=== PATIENT | male | born 1995 | race Caucasian/White ===

== ENCOUNTER 2016-05-15 04:00 | Inpatient (IN) | payer OTHER ==
[2016-05-15] VITALS (12 sets, daily range): BP systolic 101–112; BP diastolic 58–65; PULSE 50–85; RESP 16–19; TEMP 98–98.7; O2SAT 98–100
[~2016-05-15] VITALS: Ht 170.2 cm; Wt 55.9 kg
[2016-05-15] MEDS ORDERED: MORPHINE SULFATE 4 MG/ML INJ IV PUSH ONE (04:15)
--- NOTE | 2016-05-15 05:04 | RADRPT ---
EXAM DATE/TIME: 05/15/2016 04:50 [facility] COMPARISON: No previous studies available for comparison. INDICATIONS : Sudden onset of headache. RADIATION DOSE: 56.35 CTDIvol (mGy) MEDICAL HISTORY : None SURGICAL HISTORY : None. ENCOUNTER: Initial ACUITY: 1 day PAIN SCALE: 10/10 LOCATION: cranial TECHNIQUE: Multiple contiguous axial images were obtained of the head. Using automated exposure control and adj ustment of the mA and/or kV according to patient size, radiation dose was kept as low as reasonably a chievable to obtain optimal diagnostic quality images. FINDINGS: There is increased density in the anterior hemispheric fissure as well as the course of the left midd le cerebral artery which may reflect subarachnoid hemorrhage. In addition there is increased density to the left of midline in the high cerebral convexity. CT angiography to be performed. No intraparenc hymal hematoma is identified. No excessive fluid collections are present. Posterior fossa structures are unremarkable. CONCLUSION: 1. Subarachnoid hemorrhage as above. CT angiography is to be performed. Eugenio Vo MD on May 15, 2016 at 4:57 Board Certified Radiologist. This report was verified electronically.
[2016-05-15] MEDS ORDERED: SODIUM CHLORIDE 0.9% FLUSH 5 ML FLUSH IV FLUSH PRN (05:15)
[2016-05-15] MEDS ORDERED: MISCELLANEOUS NURSING INFORMATION XX SCH (05:15)
[2016-05-15] MEDS ORDERED: ONDANSETRON HCL 4 MG/2 ML VIAL IV PRN (05:15)
[2016-05-15] MEDS ORDERED: MORPHINE SULFATE 4 MG/ML INJ IV PRN (05:15)
[2016-05-15] MEDS ORDERED: CHLORHEXIDINE GLUCONATE 2 % 1 PACK (2 CLOTHS) TOP PRN (05:15)
[2016-05-15] MEDS ORDERED: IOHEXOL 350 MG/ML 10 ML VIAL (for RAD DIAG) IV ONE (05:18)
--- NOTE | 2016-05-15 05:23 | HHI.HP ---
[facility] Service Critical Care Medicine Primary Care Physician No Primary Care Physician Admission Diagnosis Subarrachnoid hemorrhage Diagnosis: Chief Complaint: Severe Headache. Travel History International Travel<30 Days: No Contact w/Intl Traveler <30 Da: No Traveled to Known Affected Are: No History of Present Illness 20 y/o man developed a severe headache several hours prior to presenting to [facility] ED. Not hypertensive. No focal neurological deficit. CT head demonstrates probable subarachnoid hemorrhage. [place] CT [place] [facility] [place] possible [place]H in fissure between frontal lobes. No intraparenchymal lesions or blood. He remains nonfocal, headache persists without much improvement after morphine 2 mg. Patient going strait to CTA brain now. Review of Systems Neurologic: COMPLAINS OF: Headache Past Family Social History Allergies: Coded Allergies: No Known Allergies (Unverified , 05/15/16) Past Medical History No meds or illnesses. Healthy, active. Physical Exam Vital Signs Vital Signs Date Time Temp Pulse Resp B/P Pulse Ox O2 Delivery O2 Flow Rate FiO2 05/15/16 04:06 98.7 70 16 112/65 100 Room Air Physical Exam P 70, BP 112/65, R 16, T 99.9, Sats 97% RA. Gen: Ill-appearing young man. Head: Atraumatic, normal. Neck: Supple, airway widely patent. Lungs: Clear, no wheezes or crackles. Comfortable respiratory pattern. Heart: NL S1S2, RRR. No JVD. Abdomen: Soft, nontender, nondistended, BS active. Extremities: Warm, well perfused. No edema. Neuro: O X 3, cooperative. M/S grossly intact. RADHA. EOMs intact. Smile, grimace symmetrical. Assessment and Plan Problem List: (1) Subarachnoid hemorrhage ICD Code: I60.9 Status: Acute (2) Headache ICD Code: R51 Status: Acute Assessment and Plan Plan: 1. Maintain SBP < 140 prior to control of aneurysm. 2. HOB up 30 degrees. 3. NPO. 4. Nimodipine with sips q4h. 5. Avoid hypotension. 6. NS iv 100 ml/hr. 7. No chemical DVT Px. 8. SCDs. 9. Protonix daily. 10. Neurosurgical evaluation. Overall impression: Sudden severe headache with anterior 1 segment, 2 mm aneurysm left side. Patient is critically with spontaneous subarachnoid hemorrhage and high risk of sudden neurological deterioration. Critical Care 40 mins aside from procedures. Problem Qualifiers (1) Headache: Qualified Code: G44.53 - Primary thunderclap headache Rigo Diallo MD May 15, 2016 05:23
--- NOTE | 2016-05-15 05:29 | RADRPT ---
EXAM DATE/TIME: 05/15/2016 04:58 [facility] COMPARISON: No previous studies available for comparison. INDICATIONS : Sudden onset cephalgia. IV CONTRAST: 72 cc Omnipaque 350 (iohexol) IV RADIATION DOSE: 17.82 CTDIvol (mGy) MEDICAL HISTORY : None SURGICAL HISTORY : None. ENCOUNTER: Initial ACUITY: 1 day PAIN SCALE: 9/10 LOCATION: cranial TECHNIQUE: Volumetric scanning was performed using a multi-row detector CT scanner. The data was post processed with a variety of visualization algorithms including full volume maximum intensity projection, multi -planar sliding thin slab reformation, curved planar reformation, and surface rendering techniques. Using automated exposure control and adjustment of the mA and/or kV according to patient size, radiat ion dose was kept as low as reasonably achievable to obtain optimal diagnostic quality images. FINDINGS: There are findings consisted with an aneurysm measuring 2 mm arising from the A1 segment on the left side. No vasospasm is identified. There is a aplastic A1 segment on the right. Posterior fossa vessel s are intact. Vertebral arteries are codominant. CONCLUSION: 1. 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 No spasm is identified. Eugenio Vo MD on May 15, 2016 at 5:21 Board Certified Radiologist. This report was verified electronically.
[2016-05-15 06:29] LABS: AMPHETAMINE, URINE NEG (NEG); COCAINE, URINE NEG (NEG)
[2016-05-15 06:35] LABS: BARBITURATES, URINE NEG (NEG)
[2016-05-15] MEDS: SODIUM CHLOR 0.9% 1000 ML INJ 1,000 ML IV SCH ×2 (06:45→16:00)
[2016-05-15] MEDS: PANTOPRAZOLE SODIUM 40 MG VIAL IV SCH (08:30)
[2016-05-15] MEDS: niMODipine 30 MG CAP PO SCH ×4 (08:30→20:36)
[2016-05-15] MEDS: SODIUM CHLORIDE 0.9% FLUSH 5 ML FLUSH IV FLUSH SCH ×2 (08:31→20:36)
[2016-05-15] MEDS: PRAVASTATIN SOD 40 MG TAB PO SCH (09:00)
[2016-05-15] MEDS ORDERED: fentaNYL CITRATE 250 MCG/5 ML AMP ONE (11:33)
[2016-05-15] MEDS ORDERED: MIDAZOLAM HCL 5 MG/5 ML VIAL ONE (11:33)
--- NOTE | 2016-05-15 12:01 | PD.CONS ---
[facility] Service Neurosurg Consult Requested By [facility] Primary Care Physician No Primary Care Physician History of Present Illness This is a 20 y/o male who developed a severe headache several hours prior to presenting to [facility] ED. No focal neurological deficit. CT head demonstrates probable subarachnoid hemorrhage. No seizure activity noted. No tongue bitting. No incontinence of stool or urine. Repeat CT head here at [facility] [place] shows possible SAH mostly in the left Sylvian fissure. Denies headaches. Denies nauseas or vomiting. Denies photophobia. No intraparenchymal lesions or blood. He remains nonfocal, headache persists without much improvement after morphine 2 mg. Neurosurgical consultation was requested. Review of Systems Constitutional: DENIES: Diaphoretic episodes, Fatigue, Fever, Weight gain, Weight loss, Chills, Dizziness, Change in appetite, Night Sweats Endocrine: DENIES: Heat/cold intolerance, Polydipsia, Polyuria, Polyphagia Eyes: DENIES: Blurred vision, Diplopia, Eye inflammation, Eye pain, Vision loss , Photosensitivity, Double Vision Ears, nose, mouth, throat: DENIES: Tinnitus, Hearing loss, Vertigo, Nasal discharge, Oral lesions, Throat pain, Hoarseness, Ear Pain, Running Nose, Epistaxis, Sinus Pain, Toothache, Odynophagia Respiratory: DENIES: Apneas, Cough, Snoring, Wheezing, Hemoptysis, Sputum production, Shortness of breath Cardiovascular: DENIES: Chest pain, Palpitations, Syncope, Dyspnea on Exertion , PND, Lower Extremity Edema, Orthopnea, Claudication Gastrointestinal: DENIES: Abdominal pain, Black stools, Bloody stools, Constipation, Diarrhea, Nausea, Vomiting, Difficulty Swallowing, Anorexia Genitourinary: DENIES: Sexual dysfunction, Urinary frequency, Urinary incontinence, Urgency, Hematuria, Dysuria, Nocturia, Penile Discharge, Testicular Pain, Testicular Swelling Musculoskeletal: DENIES: Joint pain, Muscle aches, Stiffness, Joint Swelling, Back pain, Neck pain Integumentary: DENIES: Abnormal pigmentation, Nail changes, Pruritus, Rash Hematologic/lymphatic: DENIES: Bruising, Lymphadenopathy Immunologic/allergic: DENIES: Eczema, Urticaria Neurologic: COMPLAINS OF: Headache (Now resolved), DENIES: Abnormal gait, Localized weakness, Paresthesias, Seizures, Speech Problems, Tremor, Poor Balance Psychiatric: DENIES: Anxiety, Confusion, Mood changes, Depression, Hallucinations, Agitation, Suicidal Ideation, Homicidal Ideation, Delusions Past Family Social History Allergies: Coded Allergies: No Known Allergies (Unverified , 05/15/16) Past Medical History No meds or illnesses. Past Surgical History none Reported Medications none Active Ordered Medications Current Medications Morphine Sulfate (Morphine Inj) 2 mg ONCE ONCE IV PUSH Last administered on 04:46; Start 05/15/16 at 04:15; Stop 05/15/16 at 04:16; Status DC Nimodipine 60 mg 60 mg Q4HR PO Last administered on 05/21/16 07:40; Start at 08:00 Sodium Chloride (NS 1000 ml Inj) 1,000 ml @ 100 mls/hr Q10H IV Last administered on 05/21/16 07:42; Start 05/15/16 at 05:11 IV Flush (NS Flush) 2 ml UNSCH PRN IV FLUSH FLUSH AFTER USING IV ACCESS; Start 05/15/16 at 05:15 IV Flush (NS Flush) 2 ml BID IV FLUSH Last administered on 05/21/16 07:41; Start 05/15/16 at 09:00 Acetaminophen (Tylenol) 650 mg Q6H PRN PO PAIN 1-10 AND/OR FEVER >101F Last administered on 05/20/16 05:58; Start 05/15/16 at 05:15 Morphine Sulfate (Morphine Inj) 2 mg Q2H PRN IV PAIN SCALE 6 TO 10; Start 05/15 at 05:15 Pantoprazole Sodium (Protonix Inj) 40 mg DAILY IV Last administered on 07:40; Start 05/15/16 at 09:00 Ondansetron HCl (Zofran Inj) 4 mg Q6H PRN IV NAUSEA OR VOMITING Last administered on 05/20/16 19:02; Start 05/15/16 at 05:15 Miscellaneous Information 1 [id number] XX Last administered on 05/15/16 05:15; Start 05/15/16 at 05:15 Chlorhexidine Gluconate (Chlorhexidine 2% Cloth) Taper DAILY@04 TOP Last administered on 05/17/16 03:43; Start 05/16/16 at 04:00; Stop 05/12/17 at 03:59 Chlorhexidine Gluconate (Chlorhexidine 2% Cloth) 3 pack UNSCH PRN TOP HYGIENIC CARE; Start 05/15/16 at 05:15 Iohexol (Omnipaque 350 Inj) 72 ml STK-MED ONCE IV Last administered on 05:18; Start 05/15/16 at 05:18; Stop 05/15/16 at 05:19; Status DC Influenza Virus Vaccine (Flu (Quadrivalent) Vaccine Inj) 0.5 ml ONCE ONCE IM Last administered on 05/16/16 08:23; Start 05/16/16 at 09:00; Stop 05/16/16 at 09:04; Status DC Pravastatin Sodium (Pravachol) 40 mg DAILY PO Last administered on 05/21/16 07 :41; Start 05/15/16 at 09:00 Midazolam HCl (Versed Inj) 5 mg STK-MED ONCE .ROUTE Last administered on 11:33; Start 05/15/16 at 11:33; Stop 05/15/16 at 11:34; Status DC Fentanyl Citrate (fentaNYL INJ) 250 mcg STK-MED ONCE .ROUTE Last administered on 05/15/16 11:33; Start 05/15/16 at 11:33; Stop 05/15/16 at 11:34; Status DC Fentanyl Citrate (fentaNYL INJ) 100 mcg STK-MED ONCE .ROUTE ; Start 05/15/16 at 12:23; Stop 05/15/16 at 12:24; Status DC Iodixanol (Visipaque 320 Inj) 70 ml STK-MED ONCE I-ARTERIAL Last administered on 05/15/16 12:53; Start 05/15/16 at 12:53; Stop 05/15/16 at 12:54; Status DC Nicotine (Habitrol 21 Mg Patch.24 Hr) 1 patch DAILY TD Last administered on 07:41; Start 05/16/16 at 12:00 Miscellaneous Information 1 DAILY TD Last administered on 05/21/16 07:41; Start 05/17/16 at 09:00 Epinephrine HCl (EPINEPHrine (1:10,000) INJ) 1 mg STK-MED ONCE .ROUTE ; Start at 03:51; Stop 05/20/16 at 03:52; Status DC Atropine Sulfate (Atropine Inj) 1 mg STK-MED ONCE .ROUTE ; Start 05/20/16 at 03: 52; Stop 05/20/16 at 03:53; Status DC Lidocaine HCl (Xylocaine 2% Inj) 100 mg STK-MED ONCE .ROUTE ; Start 05/20/16 at 03:52; Stop 05/20/16 at 03:53; Status DC Midazolam HCl (Versed Inj) 5 mg STK-MED ONCE .ROUTE Last administered on 14:29; Start 05/20/16 at 14:29; Stop 05/20/16 at 14:30; Status DC Fentanyl Citrate (fentaNYL INJ) 250 mcg STK-MED ONCE .ROUTE Last administered on 05/20/16 14:29; Start 05/20/16 at 14:29; Stop 05/20/16 at 14:30; Status DC Midazolam HCl (Versed Inj) 5 mg STK-MED ONCE .ROUTE Last administered on 14:59; Start 05/20/16 at 14:59; Stop 05/20/16 at 15:00; Status DC Fentanyl Citrate (fentaNYL INJ) 250 mcg STK-MED ONCE .ROUTE Last administered on 05/20/16 14:59; Start 05/20/16 at 14:59; Stop 05/20/16 at 15:00; Status DC Iodixanol (Visipaque 320 Inj) 100 ml STK-MED ONCE I-ARTERIAL Last administered on 05/20/16 15:22; Start 05/20/16 at 15:22; Stop 05/20/16 at 15:23; Status DC Family History non contributory Social History denies tobbacco, ETOH Physical Exam Vital Signs Vital Signs Date Time Temp Pulse Resp B/P Pulse Ox O2 Delivery O2 Flow Rate FiO2 05/15/16 10:00 85 05/15/16 08:00 50 05/15/16 08:00 98.3 50 18 110/62 99 05/15/16 07:30 Room Air 05/15/16 06:46 16 05/15/16 06:00 60 05/15/16 05:18 100 05/15/16 04:06 98.7 70 16 112/65 100 Room Air Laboratory Laboratory Tests Test 05/15/16 05/15/16 05:56 06:25 Urine Opiates Screen NEG Urine Barbiturates Screen NEG Urine Amphetamines Screen NEG Urine Benzodiazepines Screen NEG Urine Cocaine Screen NEG Urine Cannabinoids Screen POS Nasal Screen MRSA (PCR) NEGATIVE Assessment and Plan Assessment and Plan (1) Subarachnoid hemorrhage Attending Statement Neuro. I have reviewed his clinical and radiological findings. Start neuro checks in a serial fashion. I reviewed the CTA with the neuroradiologist. There is a 2mm aneurysm which may not fully explain the SAH in left sylvian fissure. Will obtain a conventional angiography. A placement of a ICP monitoring is not indicated at this time Recommend to repeat the CT of the brain in 24 hours. Respiratory. Mechanical ventiation. Aggressive pulmonary toilette, nasotracheal suction, and breathing treatments with nebulizers. PT and OT evaluation Nutrition. NPO Renal. monitor closely urine output, BUN and creatinine Endocrine. Monitor serial Acu checks and SSI as needed in detail ID monitor for signs of infection Protonix for stress ulcer prophylaxis Juan hose and SCD's for DVT prophylaxis The alternatives of treatment were discussed with the patient, including surgery. Further recommendations depending with full workup. Addendum. I reviewed the angiography with the neuroradiologist, Dr Alvarado. He does not think that the location of the 2mm can explain his hemorrhage, and recommends against treatment at this time. WIll repeat the cerebral angiography in 7 days Mario Gallagher MD May 15, 2016 12:01
[2016-05-15] MEDS ORDERED: IODIXANOL 320 MG/ML 50 ML VIAL (for RAD SPEC) I-ARTERIAL ONE (12:53)
--- NOTE | 2016-05-15 14:35 | PD.RAD ---
Post Procedure Progress Note Pre Procedure Diagnosis: (1) Subarachnoid hemorrhage (2) Headache Post Procedure Diagnosis: (1) Subarachnoid hemorrhage (2) Headache Procedure Date: May 15, 2016 Supervising Radiologist: Gustavo Johnson Proceduralist/Assist: Alina Ma RT(R), Alina Mcghee RT(R)(), Haja Alberts RT(R) Anesthesia: Local, Conscious Sedation Plan of Activity Patient to Unit: ROPU Patient Condition: Good See PACS Report for procedural detail/treatment Vascular-Arterial Procedure Procedure 1 Procedure Site: Cerebral Procedure(s): Angiogram Access Access Site(s): Right Femoral Artery Closure Site(s): Right hemostasis patch Findings: 2 mm blister aneurysm LEON Gustavo Johnson MD May 15, 2016 14:35
--- NOTE | 2016-05-15 15:42 | RADRPT ---
EXAM DATE/TIME: 05/15/2016 00:00 [facility] COMPARISON: No previous studies available for comparison. INDICATIONS : Patient with a history of aneurysm, subarachnoid hemorrhage. MEDICAL HISTORY : None SURGICAL HISTORY : None ENCOUNTER: Initial ACUITY: 1 day PAIN SCORE: 1/10 LOCATION: Headache FLUORO TIME: 7.1 minutes ACCESS SITE: Right Femoral artery SEDATION TIME: 60 minutes CONTRAST: 70 cc Visipaque (iodixanol) MEDICATION(S): 1.) 5 mg midazolam (Versed) IV 2.) 300 mcg fentanyl (Sublimaze) IV DEVICE(S): 1.) Right common femoral artery Syvek patch PROCEDURE : 1. Ultrasound-guided puncture of the access site. 2. Conscious sedation with continuous EKG and Oximetry monitoring. 3. Angiography of the left cerebral circulation 4. Angiography of the right cervical circulation 5. Angiography of the right vertebrobasilar circulation 6. Angiography of the left vertebrobasilar circulation The risks, benefits and alternatives to the procedure were explained and verbal and written consent w as obtained. The site was prepped in sterile fashion. Full sterile technique was used, including ca p, mask, sterile gloves and gown and a large sterile sheet. Hand hygiene and 2% chlorhexidine and/or betadine/alcohol prep was utilized per protocol for cutaneous antisepsis. The skin and subcutaneous tissues were infiltrated with local anesthetic solution. With ultrasound and fluoroscopic guidance the selected artery was punctured and a vascular sheath was placed Four-vessel cerebral/vertebral basilar arteriogram was performed. Left cerebral arteriogram: Under fluoroscopic observation a diagnostic catheter was advanced through the left common carotid art dennis into the proximal left internal carotid artery. 2-D as well as 3-D rotational angiography was per formed of the cerebral circulation. The left anterior cerebral artery supplies both right and left anterior cerebral arteries. In the cru x of the bifurcation there is a 1.8 x 1.6 mm blister aneurysm which appears smoothly marginated. The anterior cerebral circulation is otherwise unremarkable. The carotid siphon and left middle cerebral artery circulation is unremarkable. There are no arterial , capillary or venous abnormalities. There are no additional aneurysms or evidence of arterial venous malformations. Right cerebral arteriogram: Under fluoroscopic observation the diagnostic catheter was advanced from the aortic arch through the right common carotid artery into the proximal right internal carotid artery. 2-D as well as 3-D rotat ional angiography was performed of the cerebral circulation. The A1 segment of the anterior cerebral artery is aplastic. The internal carotid artery siphon and right middle cerebral artery and its branc hes are unremarkable. There is no evidence of focal aneurysm, stenosis, arteriovenous malformations o r mass effect. Left vertebrobasilar arteriogram: Under fluoroscopic observation the diagnostic catheter was advanced through the left subclavian arter y into the proximal q artery. 2-D angiography of the posterior circulation was performed. The vertebr obasilar circulation including its branches are unremarkable. There is no evidence of focal aneurysm, luminal irregularity, AVM or vascular displacement. There is no reflux into the right vertebral sepideh ry. Right vertebrobasilar arteriogram: Under fluoroscopic observation the right subclavian artery was selectively catheterized and a diagnos tic catheter advanced into the right vertebral artery over guidewire. 2-D angiography was performed. The vertebrobasilar circulation is unremarkable. There is no evidence of focal aneurysm especially in the intracranial segment of the vertebral artery. The arterial, capillary or venous phases appear no rmal. There is no evidence of AVM or vascular displacement. The puncture site was closed with manual pressure and hemostasis was obtained. The patient tolerated the procedure well and there were no complications. Conscious sedation was performed with the prescribed dosages and duration as above. EKG and oximetry remained stable throughout the procedure. 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 Otherwise normal intracranial circulation. No other evidence of aneurysm, AVM, luminal irregularity o r vascular displacement. Gustavo Johnson MD on May 15, 2016 at 15:23 Board Certified Radiologist. This report was verified electronically.
[2016-05-16] VITALS (13 sets, daily range): BP systolic 81–112; BP diastolic 44–67; PULSE 50–80; RESP 16–24; TEMP 97.5–98.9; O2SAT 98–100
[2016-05-16] MEDS: niMODipine 30 MG CAP PO SCH ×7 (00:04→23:53)
[2016-05-16] MEDS: SODIUM CHLOR 0.9% 1000 ML INJ 1,000 ML IV SCH ×3 (01:11→21:11)
[2016-05-16] MEDS: ACETAMINOPHEN 325 MG TAB PO PRN ×3 (03:30→16:24)
[2016-05-16] MEDS: CHLORHEXIDINE GLUCONATE 2 % 1 PACK (2 CLOTHS) TOP SCH (03:40)
[2016-05-16 05:15] LABS: AUTOMATED NEUTROPHIL # 9.1 TH/MM3 (1.8-7.7); BASOPHIL % 0.3 % (0.0-2.0); EOSINOPHIL % 0.2 % (0.0-4.0); HEMATOCRIT 45.6 % (39.0-51.0); HEMO FLAGS DIFF FINAL; LYMPH % 31.4 % (9.0-44.0); LYMPHOCYTE # 4.6 TH/MM3 (1.0-4.8); MEAN CELL VOLUME 87.9 FL (80.0-100.0); MEAN CORPUSCULAR HEMOGLOBIN 29.4 PG (27.0-34.0); MEAN CORPUSCULAR HGB CONC 33.5 % (32.0-36.0); MONO % 6.1 % (0.0-8.0); PLATELET COUNT 277 TH/MM3 (150-450); RED BLOOD COUNT 5.19 MIL/MM3 (4.50-5.90); RED CELL DISTRIBUTION WIDTH 14.4 % (11.6-17.2); WHITE BLOOD COUNT 14.6 TH/MM3 (4.0-11.0)
[2016-05-16 05:18] LABS: ALKALINE PHOSPHATASE 60 U/L (45-117); ALT (GPT) 23 U/L (12-78); ANION GAP 9 MEQ/L (5-15); AST (GOT) 14 U/L (15-37); BICARBONATE 27.4 MEQ/L (21.0-32.0); BLOOD UREA NITROGEN 12 MG/DL (7-18); CHLORIDE 105 MEQ/L (98-107); GLOMERULAR FILTRATION RATE 116 ML/MIN (>89); MAGNESIUM 1.8 MG/DL (1.5-2.5); POTASSIUM 3.8 MEQ/L (3.5-5.1); SODIUM (NA) 141 MEQ/L (136-145); TOTAL BILIRUBIN ADULT 0.6 MG/DL (0.2-1.0)
--- NOTE | 2016-05-16 07:51 | HHI.NSPN ---
(Carlos Diez) History Chief Complaint: SAH and headache. (Carlos Diez) Interval History 20 y/o man developed a severe headache several hours prior to presenting to [facility] ED. Not hypertensive. No focal neurological deficit. CT head demonstrates probable subarachnoid hemorrhage. Repeat CT head here at [facility] [place] shows possible SAH in fissure between frontal lobes. No intraparenchymal lesions or blood. He remains nonfocal, headache persists without much improvement after morphine 2 mg. Patient going strait to CTA brain now. 05/16/16: Pt awakens easily. Complains of frontal headache. No nausea, vomiting, muscle weakness, or visual changes. (Carlos Diez) Review of Systems General: Negative for: fever, chills, insomnia Respiratory: Negative for: shortness of breath, cough, sputum Cardiovascular: Negative for: chest pain Gastrointestinal: Negative for: nausea, vomitting, diarrhea, constipation ( Carlos Diez) Exam Results Vital Signs Date Time Temp Pulse Resp B/P Pulse Ox O2 Delivery O2 Flow Rate FiO2 05/16/16 07:00 Room Air 05/16/16 06:00 50 05/16/16 04:00 98.2 18 102/54 98 05/15/16 21:30 21 Intake and Output 05/15/16 05/15/16 05/16/16 08:00 16:00 00:00 Intake Total 0 ml 800 ml 864 ml Output Total 1000 ml 300 ml Balance 0 ml -200 ml 564 ml (Carlos Diez) Physical Examination Resp: CTA bilaterally Heart: NSR no murmurs Abd: Soft positive bs Skin: No cyanosis or erythema Muscle: Moves all 4 extremities well 5/5 strength Neuro: Pt awakens to voice. Pupils 3mm bilaterally reactive bilaterally. Follows commands well. Speech clear and appropriate. (Carlos Diez) Lab, Micro, Other Results Last Impressions Head CTA 05/15/16 0000 Signed Impressions: Service Date/Time: Sunday, May 15, 2016 04:58 - CONCLUSION: 1. 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 No spasm is identified. Eugenio Vo MD Head CT 05/15/16 0000 Signed Impressions: Service Date/Time: Sunday, May 15, 2016 04:50 - CONCLUSION: 1. Subarachnoid hemorrhage as above. CT angiography is to be performed. 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 Otherwise normal intracranial circulation. No other evidence of aneurysm, AVM, luminal irregularity or vascular displacement. Gustavo Johnson MD Laboratory Tests Test 05/16/16 05/16/16 03:58 04:05 Sodium Level 141 MEQ/L Potassium Level 3.8 MEQ/L Chloride Level 105 MEQ/L Carbon Dioxide Level 27.4 MEQ/L Anion Gap 9 MEQ/L Blood Urea Nitrogen 12 MG/DL Creatinine 0.83 MG/DL Estimat Glomerular Filtration 116 ML/MIN Rate Random Glucose 98 MG/DL Calcium Level 8.2 MG/DL Phosphorus Level 2.7 MG/DL Magnesium Level 1.8 MG/DL Total Bilirubin 0.6 MG/DL Aspartate Amino Transf 14 U/L (AST/SGOT) Alanine Aminotransferase 23 U/L (ALT/SGPT) Alkaline Phosphatase 60 U/L Total Protein 6.5 GM/DL Albumin 3.4 GM/DL White Blood Count 14.6 TH/MM3 Red Blood Count 5.19 MIL/MM3 Hemoglobin 15.3 GM/DL Hematocrit 45.6 % Mean Corpuscular Volume 87.9 FL Mean Corpuscular Hemoglobin 29.4 PG Mean Corpuscular Hemoglobin 33.5 % Concent Red Cell Distribution Width 14.4 % Platelet Count 277 TH/MM3 Mean Platelet Volume 8.3 FL Neutrophils (%) (Auto) 62.0 % Lymphocytes (%) (Auto) 31.4 % Monocytes (%) (Auto) 6.1 % Eosinophils (%) (Auto) 0.2 % Basophils (%) (Auto) 0.3 % Neutrophils # (Auto) 9.1 TH/MM3 Lymphocytes # (Auto) 4.6 TH/MM3 Monocytes # (Auto) 0.9 TH/MM3 Eosinophils # (Auto) 0.0 TH/MM3 Basophils # (Auto) 0.0 TH/MM3 CBC Comment DIFF FINAL Differential Comment 05/15/16 05/15/16 05/16/16 15:00 23:00 07:00 Intake Total 800 ml 864 ml 1053 ml Output Total 1000 ml 300 ml 200 ml Balance -200 ml 564 ml 853 ml Intake Oral 240 ml 240 ml IV Total 800 ml 624 ml 813 ml Output Urine Total 1000 ml 300 ml 200 ml (Carlos Diez) Medical Decision Making Impression and Plan A: 20 y/o M with headache found to have SAH and a 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 P: Continue with neuro checks. Continue with current care. (Carlos Diez) Attending Statement The exam, history, and the medical decision-making described in the above note were completed with the assistance of the mid-level provider. I reviewed and agree with the findings presented. I attest that I had a [id number] encounter with the patient on the same day, and personally performed and documented my assessment and findings in the medical record. 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 Patient is requesting that he be discharged home and I have informed him that there is a risk for rehemorrhage as well as developing vasospasm and used to be monitored for this and Dr. Gallagher to address more definitive treatment options for this aneurysm. He wants to go outside and smoke cigarettes and was informed that this is a smoke-free hospital but I will start him on nicotine patch. I've also discussed with the family members at bedside and hopefully they can convince him to stay in the hospital. (Yonathan Larson MD) Carlos Diez May 16, 2016 07:51 Yonathan Larson MD May 16, 2016 11:44
[2016-05-16] MEDS: PANTOPRAZOLE SODIUM 40 MG VIAL IV SCH (08:20)
[2016-05-16] MEDS: PRAVASTATIN SOD 40 MG TAB PO SCH (08:20)
[2016-05-16] MEDS: SODIUM CHLORIDE 0.9% FLUSH 5 ML FLUSH IV FLUSH SCH ×2 (08:20→21:00)
[2016-05-16] MEDS ORDERED: INFLUENZA VIRUS VACCINE (QUADRIVALENT) 0.5 ML SYR IM ONE (09:00)
[2016-05-16] MEDS: NICOTINE 21 MG/24 HR PATCH TD SCH (12:12)
--- NOTE | 2016-05-16 15:18 | HHI.CCPN ---
Subjective Remarks/Hospital Course 20 y/o man developed a severe headache several hours prior to presenting to [facility] ED. Not hypertensive. No focal neurological deficit. CT head demonstrates probable subarachnoid hemorrhage. Repeat CT head here at [facility] [place] shows possible SAH in fissure between frontal lobes. No intraparenchymal lesions or blood. He remains nonfocal, headache persists without much improvement after morphine 2 mg. Patient going strait to CTA brain now. Objective Vital Signs Date Time Temp Pulse Resp B/P Pulse Ox O2 Delivery O2 Flow Rate FiO2 05/16/16 12:00 60 05/16/16 10:07 100 21 05/16/16 08:00 97.5 22 97/52 05/16/16 07:00 Room Air Intake and Output 05/15/16 05/15/16 05/16/16 08:00 16:00 00:00 Intake Total 0 ml 800 ml 864 ml Output Total 1000 ml 300 ml Balance 0 ml -200 ml 564 ml Result Diagram: 05/16/16 0405 05/16/16 0358 Objective Remarks P 70, BP 112/65, R 16, T 99.9, Sats 97% RA. Gen: Ill-appearing young man. Head: Atraumatic, normal. Neck: Supple, airway widely patent. Lungs: Clear, no wheezes or crackles. Comfortable respiratory pattern. Heart: NL S1S2, RRR. No JVD. Abdomen: Soft, nontender, nondistended, BS active. Extremities: Warm, well perfused. No edema. Neuro: O X 3, cooperative. M/S grossly intact. RADHA. EOMs intact. Smile, grimace symmetrical. A/P Problem List: (1) Subarachnoid hemorrhage ICD Code: I60.9 Status: Acute (2) Headache ICD Code: R51 Status: Acute Assessment and Plan SAH due to Aneurysmal rupture Plan: -. Maintain SBP < 130 prior to control of aneurysm. - HOB up 30 degrees. -. Regular diet. - Nimodipine with sips q4h. - Pravachol - Vasospasm watch - Avoid hypotension. - NS iv 100 ml/hr. - No chemical DVT Px. - SCDs. - Protonix daily. - Repeat angiography in 7 D Overall impression: Sudden severe headache with anterior 1 segment, 2 mm blister aneurysm left side. Patient is critically ill with spontaneous subarachnoid hemorrhage and high risk of sudden neurological deterioration. Level 3 Problem Qualifiers (1) Headache: Qualified Code: G44.53 - Primary thunderclap headache Derian Foy MD May 16, 2016 15:18
[2016-05-17] VITALS (14 sets, daily range): BP systolic 100–108; BP diastolic 54–65; PULSE 50–70; RESP 13–20; TEMP 98.1–98.9; O2SAT 97–99
[2016-05-17] MEDS: CHLORHEXIDINE GLUCONATE 2 % 1 PACK (2 CLOTHS) TOP SCH (03:43)
[2016-05-17] MEDS: niMODipine 30 MG CAP PO SCH ×6 (03:43→23:51)
--- NOTE | 2016-05-17 06:49 | HHI.NSPN ---
(Carlos Diez) History Chief Complaint: SAH and headache. (Carlos Diez) Interval History 20 y/o man developed a severe headache several hours prior to presenting to [facility] ED. Not hypertensive. No focal neurological deficit. CT head demonstrates probable subarachnoid hemorrhage. [place] CT [place] [facility] [place] possible SAH in fissure between frontal lobes. No intraparenchymal lesions or blood. He remains nonfocal, headache persists without much improvement after morphine 2 mg. Patient going strait to CTA brain now. 05/16/16: Pt awakens easily. Complains of frontal headache. No nausea, vomiting, muscle weakness, or visual changes. 05/17/16: Pt awakens easily to voice. Intermittent headache resolves with medication. No nausea, vomiting, muscle weakness, or paresthesias. (Carlos Diez) Review of Systems General: Negative for: fever, chills, insomnia Respiratory: Negative for: shortness of breath, cough, sputum Cardiovascular: Negative for: chest pain Gastrointestinal: Negative for: nausea, vomitting, diarrhea, constipation ( Carlos Diez) Exam Results Vital Signs Date Time Temp Pulse Resp B/P Pulse Ox O2 Delivery O2 Flow Rate FiO2 05/17/16 06:00 50 05/17/16 04:00 98.6 13 100/54 99 05/17/16 01:42 21 05/16/16 20:00 Room Air Intake and Output 05/16/16 05/16/16 05/17/16 08:00 16:00 00:00 Intake Total 1053 ml 1320 ml 1785 ml Output Total 200 ml 800 ml 900 ml Balance 853 ml 520 ml 885 ml (Carlos Diez) Physical Examination Resp: CTA bilaterally Heart: NSR no murmurs Abd: Soft positive bs Skin: No cyanosis or erythema Muscle: Moves all 4 extremities well 5/5 strength Neuro: Pt awakens to voice. Pupils 3mm bilaterally reactive bilaterally. Follows commands well. Speech clear and appropriate. (Carlos Diez) Lab, Micro, Other Results Last Impressions Head CTA 05/15/16 0000 Signed Impressions: Service Date/Time: Sunday, May 15, 2016 04:58 - CONCLUSION: 1. 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 No spasm is identified. Eugenio Vo MD Head CT 05/15/16 0000 Signed Impressions: Service Date/Time: Sunday, May 15, 2016 04:50 - CONCLUSION: 1. Subarachnoid hemorrhage as above. CT angiography is to be performed. 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 Otherwise normal intracranial circulation. No other evidence of aneurysm, AVM, luminal irregularity or vascular displacement. 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 P: Continue with neuro checks. Continue with current care. Monitor closely for vasospasm. Continue with Nimodipine (Carlos Diez) Attending Statement The exam, history, and the medical decision-making described in the above note were completed with the assistance of the mid-level provider. I reviewed and agree with the findings presented. I attest that I had a [id number] encounter with the patient on the same day, and personally performed and documented my assessment and findings in the medical record. Stable neurologically and hemodynamically. Continue with close observation. (Yonathan Larson MD) Carlos Diez May 17, 2016 06:49 Yonathan Larson MD May 17, 2016 09:45
[2016-05-17 09:11] LABS: AUTOMATED NEUTROPHIL # 4.9 TH/MM3 (1.8-7.7); BASOPHIL % 0.6 % (0.0-2.0); EOSINOPHIL # 0.1 TH/MM3 (0-0.4); EOSINOPHIL % 0.8 % (0.0-4.0); HEMATOCRIT 48.4 % (39.0-51.0); HEMO FLAGS DIFF FINAL; LYMPH % 26.3 % (9.0-44.0); MEAN CELL VOLUME 88.2 FL (80.0-100.0); MEAN CORPUSCULAR HEMOGLOBIN 29.9 PG (27.0-34.0); MEAN CORPUSCULAR HGB CONC 33.9 % (32.0-36.0); MONO % 7.4 % (0.0-8.0); NEUT % 64.9 % (16.0-70.0); PLATELET COUNT 262 TH/MM3 (150-450); RED BLOOD COUNT 5.49 MIL/MM3 (4.50-5.90); WHITE BLOOD COUNT 7.6 TH/MM3 (4.0-11.0)
--- NOTE | 2016-05-17 09:18 | HHI.CCPN ---
Subjective Remarks/Hospital Course 20 y/o man developed a severe headache several hours prior to presenting to [facility] ED. Not hypertensive. No focal neurological deficit. CT head demonstrates probable subarachnoid hemorrhage. Repeat CT head here at [facility] [place] shows possible SAH in fissure between frontal lobes. No intraparenchymal lesions or blood. He remains nonfocal, headache persists without much improvement after morphine 2 mg. Patient going strait to CTA brain now. Objective Vital Signs Date Time Temp Pulse Resp B/P Pulse Ox O2 Delivery O2 Flow Rate FiO2 05/17/16 06:00 50 05/17/16 04:00 98.6 13 100/54 99 05/17/16 01:42 21 05/16/16 20:00 Room Air Intake and Output 05/16/16 05/16/16 05/17/16 08:00 16:00 00:00 Intake Total 1053 ml 1320 ml 1785 ml Output Total 200 ml 800 ml 900 ml Balance 853 ml 520 ml 885 ml Result Diagram: 05/17/16 0814 05/16/16 0358 Objective Remarks P 70, BP 112/65, R 16, T 99.9, Sats 97% RA. Gen: Ill-appearing young man. Head: Atraumatic, normal. Neck: Supple, airway widely patent. Lungs: Clear, no wheezes or crackles. Comfortable respiratory pattern. Heart: NL S1S2, RRR. No JVD. Abdomen: Soft, nontender, nondistended, BS active. Extremities: Warm, well perfused. No edema. Neuro: O X 3, cooperative. M/S grossly intact. RADHA. EOMs intact. Smile, grimace symmetrical. A/P Problem List: (1) Subarachnoid hemorrhage ICD Code: I60.9 Status: Acute (2) Headache ICD Code: R51 Status: Acute Assessment and Plan SAH - due to cerebral Aneurysma: - Maintain SBP < 130 - unsecured aneurysm. - HOB up 30 degrees. - Regular diet. - Nimodipine with sips q4h. - Pravachol - Vasospasm watch - Avoid hypotension. - NS iv 100 ml/hr. - Repeat angiography in 7 D DVT/GI prophylaxis - No chemical DVT Px. - SCDs. - Protonix daily. Overall impression: Sudden severe headache with anterior 1 segment, 2 mm blister aneurysm left side. Patient is critically ill with spontaneous subarachnoid hemorrhage and high risk of sudden neurological deterioration. Level 3 Problem Qualifiers (1) Headache: Qualified Code: G44.53 - Primary thunderclap headache Derian Foy MD May 17, 2016 09:18
[2016-05-17] MEDS: PRAVASTATIN SOD 40 MG TAB PO SCH (09:20)
[2016-05-17] MEDS: PANTOPRAZOLE SODIUM 40 MG VIAL IV SCH (09:20)
[2016-05-17] MEDS: SODIUM CHLOR 0.9% 1000 ML INJ 1,000 ML IV SCH ×2 (09:21→16:58)
[2016-05-17] MEDS: SODIUM CHLORIDE 0.9% FLUSH 5 ML FLUSH IV FLUSH SCH ×2 (09:21→19:46)
[2016-05-17] MEDS: NICOTINE 21 MG/24 HR PATCH TD SCH (09:22)
[2016-05-17] MEDS: REMOVE OLD NICODERM (NICOTINE) PATCH TD SCH (09:23)
[2016-05-17 09:33] LABS: ANION GAP 8 MEQ/L (5-15); AST (GOT) 14 U/L (15-37); BICARBONATE 29.6 MEQ/L (21.0-32.0); BLOOD UREA NITROGEN 10 MG/DL (7-18); CHLORIDE 103 MEQ/L (98-107); GLOMERULAR FILTRATION RATE 111 ML/MIN (>89); MAGNESIUM 1.9 MG/DL (1.5-2.5); POTASSIUM 4.1 MEQ/L (3.5-5.1); SODIUM (NA) 141 MEQ/L (136-145)
[2016-05-17 09:36] LABS: ALKALINE PHOSPHATASE 60 U/L (45-117); ALT (GPT) 22 U/L (12-78); TOTAL BILIRUBIN ADULT 0.8 MG/DL (0.2-1.0)
[2016-05-17] MEDS: ACETAMINOPHEN 325 MG TAB PO PRN (23:51)
[2016-05-18] VITALS (10 sets, daily range): BP systolic 89–134; BP diastolic 53–75; PULSE 45–86; RESP 18–24; TEMP 97.7–98.4; O2SAT 97–100
[2016-05-18] MEDS: SODIUM CHLOR 0.9% 1000 ML INJ 1,000 ML IV SCH ×3 (01:20→23:11)
[2016-05-18] MEDS: CHLORHEXIDINE GLUCONATE 2 % 1 PACK (2 CLOTHS) TOP SCH (01:20)
[2016-05-18 04:15] LABS: AUTOMATED NEUTROPHIL # 4.2 TH/MM3 (1.8-7.7); BASOPHIL # 0.1 TH/MM3 (0-0.2); BASOPHIL % 0.8 % (0.0-2.0); EOSINOPHIL # 0.1 TH/MM3 (0-0.4); EOSINOPHIL % 1.7 % (0.0-4.0); HEMATOCRIT 46.7 % (39.0-51.0); HEMO FLAGS DIFF FINAL; LYMPH % 34.5 % (9.0-44.0); LYMPHOCYTE # 2.6 TH/MM3 (1.0-4.8); MEAN CELL VOLUME 87.8 FL (80.0-100.0); MEAN CORPUSCULAR HEMOGLOBIN 29.7 PG (27.0-34.0); MEAN CORPUSCULAR HGB CONC 33.8 % (32.0-36.0); MONO % 7.5 % (0.0-8.0); NEUT % 55.5 % (16.0-70.0); PLATELET COUNT 269 TH/MM3 (150-450); RED BLOOD COUNT 5.32 MIL/MM3 (4.50-5.90); RED CELL DISTRIBUTION WIDTH 14.3 % (11.6-17.2); WHITE BLOOD COUNT 7.6 TH/MM3 (4.0-11.0)
[2016-05-18 04:34] LABS: ANION GAP 4 MEQ/L (5-15); AST (GOT) 12 U/L (15-37); BICARBONATE 30.8 MEQ/L (21.0-32.0); BLOOD UREA NITROGEN 10 MG/DL (7-18); CHLORIDE 106 MEQ/L (98-107); GLOMERULAR FILTRATION RATE 92 ML/MIN (>89); SODIUM (NA) 141 MEQ/L (136-145)
[2016-05-18 04:38] LABS: ALKALINE PHOSPHATASE 57 U/L (45-117); ALT (GPT) 20 U/L (12-78); TOTAL BILIRUBIN ADULT 0.4 MG/DL (0.2-1.0)
[2016-05-18] MEDS: niMODipine 30 MG CAP PO SCH ×5 (04:49→20:13)
--- NOTE | 2016-05-18 08:15 | PD ---
HPI Chief Complaint: Headache Time Seen by Provider: 04:11 Travel History International Travel<30 days: No Contact w/Intl Traveler<30days: No Traveled to known affect area: No History of Present Illness HPI Patient is a 20-year-old male who arrives as a transfer from outside facility for subarachnoid hemorrhage. He says he started to have severe headache today and came into the hospital. He denies any head trauma. He denies any drug abuse. He was given a migraine cocktail at the outside facility, which she says has improved some of his pain have but he is still currently having a headache. Patient was accepted for transfer by Dr. Daillo and Dr. Gallagher. He denies nausea or vomiting. He denies any fever or chills. PFSH Past Medical History Medical History: Denies Significant Hx Anxiety: No Depression: No Cancer: No Cardiovascular Problems: No Cerebrovascular Accident: No Diabetes: No Genitourinary: No Musculoskeletal: No Neurologic: Yes Reproductive: No Respiratory: No Immunizations Current: Yes Migraines: No Seizures: No Tetanus Vaccination: < 5 Years Influenza Vaccination: No Past Surgical History Surgical History: No Previous Surgery Social History Alcohol Use: Yes (RARE) Tobacco Use: Yes (1PPD) Substance Use: No Allergies-Medications (Allergen,Severity, Reaction): Coded Allergies: No Known Allergies (Unverified , 05/15/16) Reported Meds & Prescriptions Reported Meds & Active Scripts Active No Active Prescriptions or Reported Medications Review of Systems Except as stated in HPI: all other systems reviewed are Neg General / Constitutional: No: Fever, Chills Eyes: No: Blurred Vision HENT: Positive: Headaches Cardiovascular: No: Chest Pain or Discomfort Respiratory: No: Shortness of Breath Gastrointestinal: No: Nausea, Vomiting Musculoskeletal: No: Myalgias, Weakness Skin: No Rash, No Change in Pigmentation Neurologic: No: Dizziness Physical Exam Narrative GENERAL: Awake and alert in no acute distress. SKIN: Warm and dry. HEAD: Atraumatic. Normocephalic. EYES: Pupils equal and round. No scleral icterus. Extraocular movements intact. ENT: Mucous membranes pink and moist. NECK: Trachea midline. No JVD. CARDIOVASCULAR: Regular rate and rhythm. No murmur appreciated. RESPIRATORY: No accessory muscle use. Clear to auscultation. Breath sounds equal bilaterally. GASTROINTESTINAL: Abdomen soft, non-tender, nondistended. MUSCULOSKELETAL: No obvious deformities. No clubbing. No cyanosis. No edema. NEUROLOGICAL: Awake and alert. No obvious cranial nerve deficits. Motor grossly within normal limits. Normal speech. PSYCHIATRIC: Appropriate mood and affect; insight and judgment normal. Data Data Last Documented VS Vital Signs Date Time Temp Pulse Resp B/P Pulse Ox O2 Delivery O2 Flow Rate FiO2 05/15/16 04:06 98.7 70 16 112/65 100 Room Air Orders Morphine Inj (Morphine Inj) (05/15/16 04:15) Drug Screen, Random Urine (05/15/16 04:14) Nimodipine (Nimotop) (05/15/16 08:00) Cta Brain W Iv Contrast W 3d (05/15/16 ) Consult Neurosurgery (05/15/16 ) (Hub Use Only)Inp Phy Cons/Ref (05/15/16 ) Ct Brain W/O Iv Contrast(Rout) (05/15/16 ) Admit Order (Ed Use Only) (05/15/16 ) MDM Medical Decision Making Medical Screen Exam Complete: Yes Emergency Medical Condition: Yes Differential Diagnosis ICH versus trauma versus aneurysm Narrative Course Patient is a 20-year-old male who arrives as a transfer from an outside facility for subarachnoid hemorrhage. Currently patient has a mild headache. Neurologically he has no abnormalities at this time. I spoke with Dr. Gallagher of neurosurgery who advises CTA of the head as well as nimodipine. Patient admitted to the ICU for further management. Given morphine for pain. Diagnosis Primary Impression: Subarachnoid hemorrhage Admitting Information Admitting Physician Requests: Admit Scripts No Active Prescriptions or Reported Meds Condition: Stable Madina Patterson MD May 18, 2016 08:15
[2016-05-18] MEDS: PANTOPRAZOLE SODIUM 40 MG VIAL IV SCH (08:18)
[2016-05-18] MEDS: REMOVE OLD NICODERM (NICOTINE) PATCH TD SCH (08:18)
[2016-05-18] MEDS: NICOTINE 21 MG/24 HR PATCH TD SCH (08:18)
[2016-05-18] MEDS: PRAVASTATIN SOD 40 MG TAB PO SCH (08:18)
[2016-05-18] MEDS: SODIUM CHLORIDE 0.9% FLUSH 5 ML FLUSH IV FLUSH SCH ×2 (08:19→21:19)
--- NOTE | 2016-05-18 14:14 | HHI.CCPN ---
Subjective Remarks/Hospital Course 20 y/o man developed a severe headache several hours prior to presenting to [facility] ED. Not hypertensive. No focal neurological deficit. CT head demonstrates probable subarachnoid hemorrhage. Repeat CT head here at [facility] [place] shows possible SAH in fissure between frontal lobes. No intraparenchymal lesions or blood. He remains nonfocal, headache persists without much improvement after morphine 2 mg. Patient going strait to CTA brain now. Objective Vital Signs Date Time Temp Pulse Resp B/P Pulse Ox O2 Delivery O2 Flow Rate FiO2 05/18/16 12:00 98.2 86 20 123/73 100 05/18/16 08:28 Room Air 05/18/16 08:00 21 Intake and Output 05/17/16 05/17/16 05/18/16 08:00 16:00 00:00 Intake Total 480 ml 1315 ml 1130 ml Output Total 600 ml 850 ml Balance -120 ml 465 ml 1130 ml Result Diagram: 05/18/16 0349 05/18/16348 Objective Remarks P 70, BP 112/65, R 16, T 99.9, Sats 97% RA. Gen: Ill-appearing young man. Head: Atraumatic, normal. Neck: Supple, airway widely patent. Lungs: Clear, no wheezes or crackles. Comfortable respiratory pattern. Heart: NL S1S2, RRR. No JVD. Abdomen: Soft, nontender, nondistended, BS active. Extremities: Warm, well perfused. No edema. Neuro: O X 3, cooperative. M/S grossly intact. RADHA. EOMs intact. Smile, grimace symmetrical. A/P Problem List: (1) Subarachnoid hemorrhage ICD Code: I60.9 Status: Acute (2) Headache ICD Code: R51 Status: Acute Assessment and Plan SAH - due to cerebral Aneurysma: - Maintain SBP < 130 - unsecured aneurysm ??? - HOB up 30 degrees. - Regular diet. - Nimodipine with sips q4h. - Pravachol - Vasospasm watch - Avoid hypotension. - NS iv 100 ml/hr. - Bleed area doesn't correlate with blister aneurysm at bifurcation - standard care is to repeat Angiogram in 7 days - Blister aneurysm found is too small for any intervention DVT/GI prophylaxis - No chemical DVT Px. - SCDs. - Protonix daily. Overall impression: Sudden severe headache with anterior 1 segment, 2 mm blister aneurysm left side. Patient is critically ill with spontaneous subarachnoid hemorrhage and high risk of sudden neurological deterioration. Level 2 Problem Qualifiers (1) Headache: Qualified Code: G44.53 - Primary thunderclap headache Derian Foy MD May 18, 2016 14:14
[2016-05-19] VITALS (12 sets, daily range): BP systolic 97–118; BP diastolic 59–74; PULSE 42–69; RESP 12–26; TEMP 97.4–98; O2SAT 97–99
[2016-05-19] MEDS: niMODipine 30 MG CAP PO SCH ×7 (00:40→23:33)
[2016-05-19] MEDS: CHLORHEXIDINE GLUCONATE 2 % 1 PACK (2 CLOTHS) TOP SCH (04:00)
[2016-05-19 04:56] LABS: BASOPHIL # 0.1 TH/MM3 (0-0.2); BASOPHIL % 0.8 % (0.0-2.0); EOSINOPHIL # 0.2 TH/MM3 (0-0.4); EOSINOPHIL % 2.4 % (0.0-4.0); HEMATOCRIT 50.2 % (39.0-51.0); HEMO FLAGS DIFF FINAL; LYMPH % 37.3 % (9.0-44.0); LYMPHOCYTE # 2.8 TH/MM3 (1.0-4.8); MEAN CELL VOLUME 87.9 FL (80.0-100.0); MEAN CORPUSCULAR HEMOGLOBIN 29.7 PG (27.0-34.0); MEAN CORPUSCULAR HGB CONC 33.8 % (32.0-36.0); MONO % 6.8 % (0.0-8.0); NEUT % 52.7 % (16.0-70.0); PLATELET COUNT 272 TH/MM3 (150-450); RED BLOOD COUNT 5.71 MIL/MM3 (4.50-5.90); RED CELL DISTRIBUTION WIDTH 14.1 % (11.6-17.2); WHITE BLOOD COUNT 7.6 TH/MM3 (4.0-11.0)
[2016-05-19 05:28] LABS: ALKALINE PHOSPHATASE 61 U/L (45-117); ALT (GPT) 25 U/L (12-78); ANION GAP 8 MEQ/L (5-15); AST (GOT) 18 U/L (15-37); BICARBONATE 28.2 MEQ/L (21.0-32.0); BLOOD UREA NITROGEN 12 MG/DL (7-18); CHLORIDE 102 MEQ/L (98-107); GLOMERULAR FILTRATION RATE 104 ML/MIN (>89); MAGNESIUM 2.1 MG/DL (1.5-2.5); POTASSIUM 4.3 MEQ/L (3.5-5.1); SODIUM (NA) 138 MEQ/L (136-145); TOTAL BILIRUBIN ADULT 0.3 MG/DL (0.2-1.0)
[2016-05-19] MEDS: PANTOPRAZOLE SODIUM 40 MG VIAL IV SCH (08:51)
[2016-05-19] MEDS: REMOVE OLD NICODERM (NICOTINE) PATCH TD SCH (08:51)
[2016-05-19] MEDS: PRAVASTATIN SOD 40 MG TAB PO SCH (08:51)
[2016-05-19] MEDS: SODIUM CHLORIDE 0.9% FLUSH 5 ML FLUSH IV FLUSH SCH ×2 (08:51→21:00)
[2016-05-19] MEDS: SODIUM CHLOR 0.9% 1000 ML INJ 1,000 ML IV SCH ×2 (08:51→19:51)
[2016-05-19] MEDS: NICOTINE 21 MG/24 HR PATCH TD SCH (08:51)
--- NOTE | 2016-05-19 12:30 | HHI.CCPN ---
Subjective Remarks/Hospital Course 20 y/o man developed a severe headache several hours prior to presenting to [facility] ED. Not hypertensive. No focal neurological deficit. CT head demonstrates probable subarachnoid hemorrhage. Repeat CT head here at [facility] [place] shows possible SAH in fissure between frontal lobes. No intraparenchymal lesions or blood. He remains nonfocal. 05/19: Asymptomatic. Awaiting repeat cerebral a-gram. Objective Vital Signs Date Time Temp Pulse Resp B/P Pulse Ox O2 Delivery O2 Flow Rate FiO2 05/19/16 12:00 97.4 69 20 109/68 99 05/19/16 07:00 Room Air 05/18/16 08:00 21 Intake and Output 05/18/16 05/18/16 05/19/16 08:00 16:00 00:00 Intake Total 480 ml 600 ml 360 ml Output Total 400 ml 500 ml 300 ml Balance 80 ml 100 ml 60 ml Result Diagram: 05/19/16 0416 05/19/16 0419 Objective Remarks P 69, BP 109/68, R 16, Sats 97% Gen: Comfortable. Head: Atraumatic, normal. Neck: Supple, airway widely patent. Lungs: Clear, no wheezes or crackles. Comfortable respiratory pattern. Heart: NL S1S2, RRR. No JVD. Abdomen: Soft, nontender, nondistended, BS active. Extremities: Warm, well perfused. No edema or cyanosis. Neuro: O X 3, cooperative. M/S grossly intact. RADHA. EOMs intact. Smile, grimace symmetrical. Speech clear. 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 - Regular diet. - Nimodipine 60 mg q4h. - Pravachol - Vasospasm watch - Avoid hypotension. - NS iv 50 ml/hr. now that taking PO. - Bleed area doesn't correlate with blister aneurysm at bifurcation - standard care is to repeat Angiogram in 7 days - Blister aneurysm found is too small for any intervention DVT/GI prophylaxis - No chemical DVT Px. - SCDs. - Protonix daily. Overall impression: Sudden severe headache with small aneurysm. Patient is at high risk of sudden neurological deterioration but presently is stable. Problem Qualifiers (1) Headache: Qualified Code: G44.53 - Primary thunderclap headache Rigo Diallo MD May 19, 2016 12:30
[2016-05-20] VITALS (10 sets, daily range): BP systolic 103–117; BP diastolic 63–75; PULSE 48–68; RESP 16–27; TEMP 97–97.8; O2SAT 97–100
[2016-05-20] MEDS: niMODipine 30 MG CAP PO SCH ×6 (03:32→23:54)
[2016-05-20] MEDS ORDERED: EPINEPHrine HCL (1:10,000) 1 MG/10 ML SYRINGE ONE (03:51)
[2016-05-20] MEDS ORDERED: LIDOCAINE HCL 2% 100 MG/5 ML SYRINGE ONE (03:52)
[2016-05-20] MEDS ORDERED: ATROPINE SULFATE 1 MG/10 ML SYRINGE ONE (03:52)
[2016-05-20] MEDS: CHLORHEXIDINE GLUCONATE 2 % 1 PACK (2 CLOTHS) TOP SCH (04:00)
--- NOTE | 2016-05-20 04:24 | RADRPT ---
EXAM DATE/TIME: 05/20/2016 04:16 [place] COMPARISON: CT BRAIN W/O CONTRAST, May 15, 2016, 4:50. INDICATIONS : Follow up bleed. RADIATION DOSE: 35.25 CTDIvol (mGy) MEDICAL HISTORY : None SURGICAL HISTORY : None. ENCOUNTER: Subsequent ACUITY: 4 - 6 days PAIN SCALE: 0/10 LOCATION: cranial TECHNIQUE: Multiple contiguous axial images were obtained of the head. Using automated exposure control and adj ustment of the mA and/or kV according to patient size, radiation dose was kept as low as reasonably a chievable to obtain optimal diagnostic quality images. FINDINGS: CEREBRUM: The ventricles are normal for age. No evidence of midline shift, mass lesion, hemorrhage or acute in farction. No extra-axial fluid collections are seen. POSTERIOR FOSSA: The cerebellum and brainstem are intact. The 4th ventricle is midline. The cerebellopontine angle i s unremarkable. EXTRACRANIAL: The visualized portion of the orbits is intact. SKULL: The calvaria is intact. No evidence of skull fracture. CONCLUSION: Normal examination. Javi Jade MD on May 20, 2016 at 4:21 Board Certified Radiologist. This report was verified electronically.
[2016-05-20] MEDS: SODIUM CHLOR 0.9% 1000 ML INJ 1,000 ML IV SCH ×2 (05:11→15:11)
[2016-05-20] MEDS: ACETAMINOPHEN 325 MG TAB PO PRN (05:58)
[2016-05-20] MEDS: NICOTINE 21 MG/24 HR PATCH TD SCH (08:24)
[2016-05-20] MEDS: PANTOPRAZOLE SODIUM 40 MG VIAL IV SCH (08:24)
[2016-05-20] MEDS: REMOVE OLD NICODERM (NICOTINE) PATCH TD SCH (08:25)
[2016-05-20] MEDS: PRAVASTATIN SOD 40 MG TAB PO SCH (08:25)
[2016-05-20] MEDS: SODIUM CHLORIDE 0.9% FLUSH 5 ML FLUSH IV FLUSH SCH ×2 (08:25→20:36)
--- NOTE | 2016-05-20 11:46 | HHI.CCPN ---
Subjective Remarks/Hospital Course 20 y/o man developed a severe headache several hours prior to presenting to [facility] ED. Not hypertensive. No focal neurological deficit. CT head demonstrates probable subarachnoid hemorrhage. [place] [facility] [place] possible SAH in fissure between frontal lobes. No intraparenchymal lesions or blood. He remains nonfocal. 05/19: Asymptomatic. Awaiting repeat cerebral a-gram. 05/20: No new neurological sxs. Objective Vital Signs Date Time Temp Pulse Resp B/P Pulse Ox O2 Delivery O2 Flow Rate FiO2 05/20/16 10:00 58 05/20/16 08:00 97.7 25 117/75 97 05/20/16 07:00 Room Air 05/18/16 08:00 21 Intake and Output 05/19/16 05/19/16 05/20/16 08:00 16:00 00:00 Intake Total 240 ml 480 ml 908 ml Output Total 275 ml 1200 ml 575 ml Balance -35 ml -720 ml 333 ml Result Diagram: 05/19/16 0416 05/19/16 0419 Objective Remarks P 63, BP 117/75, R 16, Sats 97% Gen: Comfortable. Head: Atraumatic, normal. Neck: Supple, airway widely patent. Lungs: Clear, no wheezes or crackles. Comfortable respiratory pattern. Heart: NL S1S2, RRR. No JVD. Abdomen: Soft, nontender, nondistended, BS active. Extremities: Warm, well perfused. No edema or cyanosis. Neuro: O X 3, cooperative. M/S grossly intact. RADHA. EOMs intact. Speech clear. 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 - Regular diet. - Nimodipine 60 mg q4h. - Pravachol - Vasospasm watch - Avoid hypotension. - NS iv 50 ml/hr. now that taking PO. - Bleed area doesn't correlate with blister aneurysm at bifurcation - standard care is to repeat Angiogram in 7 days - Blister aneurysm found is too small for any intervention DVT/GI prophylaxis - No chemical DVT Px. - SCDs. - Protonix daily. Overall impression: Sudden severe headache with small aneurysm. Patient is at high risk of sudden neurological deterioration but presently is stable. Problem Qualifiers (1) Headache: Qualified Code: G44.53 - Primary thunderclap headache Rigo Diallo MD May 20, 2016 11:46
--- NOTE | 2016-05-20 12:58 | HHI.NSPN ---
(Aminata Zamorano) Note Status Status: Progress Note (Aminata Zamorano) Interval History Interval History 20 y/o man developed a severe headache several hours prior to presenting to [facility] ED. Not hypertensive. No focal neurological deficit. CT head demonstrates probable subarachnoid hemorrhage. Repeat CT head [place] [facility] [place] possible SAH in fissure between frontal lobes. No intraparenchymal lesions or blood. He remains nonfocal, headache persists without much improvement after morphine 2 mg. 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 05/20: had a spell yesterday when he was standing did not feel well. There was no complaints of headaches, vomiting, seizures, focal weakness, AMS. f/u CT Head yesterday stable. Today, he feels better, no further similar episodes. ( Aminata Zamorano) Labs, Micro, & Vital Signs Results Date Time Temp Pulse Resp B/P Pulse Ox O2 Delivery O2 Flow Rate FiO2 05/20/16 10:00 58 05/20/16 08:00 63 05/20/16 08:00 97.7 54 25 117/75 97 05/20/16 07:00 97 Room Air 05/20/16 06:00 63 05/20/16 04:00 97.5 66 27 109/75 100 05/20/16 04:00 66 05/20/16 02:00 62 05/20/16 00:00 97.8 48 17 103/63 98 05/20/16 00:00 48 05/19/16 22:00 56 05/19/16 20:00 98.0 65 24 117/74 97 05/19/16 20:00 65 05/19/16 19:00 98 Room Air 05/19/16 18:00 64 05/19/16 16:00 67 05/19/16 16:00 97.8 67 21 118/64 97 05/19/16 14:00 69 05/20/16 07:00 Intake Total 2256 ml Output Total 2925 ml Balance -669 ml Constitutional Vital Signs Date Time Temp Pulse Resp B/P Pulse Ox O2 Delivery O2 Flow Rate FiO2 05/20/16 10:00 58 05/20/16 08:00 63 05/20/16 08:00 97.7 54 25 117/75 97 05/20/16 07:00 97 Room Air 05/20/16 06:00 63 05/20/16 04:00 97.5 66 27 109/75 100 05/20/16 04:00 66 05/20/16 02:00 62 05/20/16 00:00 97.8 48 17 103/63 98 05/20/16 00:00 48 05/19/16 22:00 56 05/19/16 20:00 98.0 65 24 117/74 97 05/19/16 20:00 65 05/19/16 19:00 98 Room Air 05/19/16 18:00 64 05/19/16 16:00 67 05/19/16 16:00 97.8 67 21 118/64 97 05/19/16 14:00 69 05/20/16 07:00 Intake Total 2256 ml Output Total 2925 ml Balance -669 ml (Aminata Zamorano) Review of Systems/Exam Exam Mr. Jones is alert, awake and oriented to time, place and person. Speech is fluent with a [place] speaking type accent. Cranial nerve examination demonstrates the pupils to be equal, round, and reactive to light. Extra-ocular movements are intact. Facial motor and sensory function are normal and symmetrical. Sternocleidomastoid and trapezius muscles have normal and symmetrical strength. Other cranial nerves are intact. Neck is soft and supple. 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 In the lower extremities, strength is 5/5 in both iliopsoas, quadriceps, hamstrings, plantar flexion, dorsiflexion, and extensor hallicus longus. Sensory examination is intact to light touch in both the upper and lower extremities, symmetrically. There is a bilateral plantar flexion response. Cerebellar examination is intact to [id number] test (Aminata Zamorano) Medications Current Medications Current Medications Medications (Trade) Dose Ordered Sig/María Route PRN Reason Start Time Stop Time Status Last Admin Dose Admin Nimodipine 60 mg 60 mg Q4HR PO 05/15/16 08:00 05/20/16 12:15 Sodium Chloride (NS 1000 ml Inj) 1,000 ml @ 100 mls/hr Q10H IV 05/15/16 05:11 05/19/16 19:51 IV Flush (NS Flush) 2 ml UNSCH PRN IV FLUSH FLUSH AFTER USING IV ACCESS 05/15/16 05:15 IV Flush (NS Flush) 2 ml BID IV FLUSH 05/15/16 09:00 05/20/16 08:25 Acetaminophen (Tylenol) 650 mg Q6H PRN PO PAIN 1-10 AND/OR FEVER >101F 05/15/16 05:15 05/20/16 05:58 Morphine Sulfate (Morphine Inj) 2 mg Q2H PRN IV PAIN SCALE 6 TO 10 05/15/16 05:15 Pantoprazole Sodium (Protonix Inj) 40 mg DAILY IV 05/15/16 09:00 05/20/16 08:24 Ondansetron HCl (Zofran Inj) 4 mg Q6H PRN IV NAUSEA OR VOMITING 05/15/16 05:15 Miscellaneous Information 1 Q361D XX 05/15/16 05:15 05/15/16 05:15 Chlorhexidine Gluconate (Chlorhexidine 2% Cloth) 3 pack Taper DAILY@04 TOP 05/16/16 04:00 05/12/17 03:59 05/17/16 03:43 Chlorhexidine Gluconate (Chlorhexidine 2% Cloth) 3 pack UNSCH PRN TOP HYGIENIC CARE 05/15/16 05:15 Pravastatin Sodium (Pravachol) 40 mg DAILY PO 05/15/16 09:00 05/20/16 08:25 Nicotine (Habitrol 21 Mg Patch.24 Hr) 1 patch DAILY TD 05/16/16 12:00 05/20/16 08:24 Miscellaneous Information 1 DAILY TD 05/17/16 09:00 05/20/16 08:25 (Aminata Zamorano) Medical Decision Making MDM Remarks 20 y/o male with subarachnoid hemorrhage in L MCA distribution, angiogram showed a 2 mm LEON aneurysm nonfocal neurological examination (Aminata Zamorano) Plan Plan Remarks cont serial neuro checks, f/u CT Brain shows resolution of SAH repeat angiogram today to definitely rule out other aneurysms (Aminata Zamorano) Attending Statement The exam, history, and the medical decision-making described in the above note were completed with the assistance of the mid-level provider. I reviewed and agree with the findings presented. I attest that I had a [id number] encounter with the patient on the same day, and personally performed and documented my assessment and findings in the medical record. (Mario Gallagher MD) Aminata Zamorano May 20, 2016 12:58 Mario Gallagher MD May 20, 2016 17:13
[2016-05-20] MEDS ORDERED: fentaNYL CITRATE 250 MCG/5 ML AMP ONE ×2 (14:29→14:59)
[2016-05-20] MEDS ORDERED: MIDAZOLAM HCL 5 MG/5 ML VIAL ONE ×2 (14:29→14:59)
[2016-05-20] MEDS ORDERED: IODIXANOL 320 MG/ML 50 ML VIAL (for RAD SPEC) I-ARTERIAL ONE (15:22)
--- NOTE | 2016-05-20 15:42 | PD.RAD ---
Post Procedure Progress Note Pre Procedure Diagnosis: (1) Subarachnoid hemorrhage (2) Headache Post Procedure Diagnosis: (1) Subarachnoid hemorrhage (2) Headache Procedure Date: May 20, 2016 Supervising Radiologist: Manuel Luis Proceduralist/Assist: Bernice Iraheta, RT(R), Ruby Silverman RT(R)() Anesthesia: Local, Analgesia, Conscious Sedation Plan of Activity Patient to Unit: Critical Care Patient Condition: Good See PACS Report for procedural detail/treatment Vascular-Arterial Procedure Procedure 1 Procedure Site: Cerebral (4 vessel) Procedure(s): Angiogram Access Access Site(s): Right Femoral Artery Closure Site(s): Right manual pressure Findings: Stable 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
--- NOTE | 2016-05-20 17:20 | RADRPT ---
EXAM DATE/TIME: 05/20/2016 14:17 This report includes an Addendum and supersedes previous reports for this exam. [facility] COMPARISON: ANGIOGRAM, CEREBRAL WO ARCH, May 15, 2016, 0:00. CTA BRAIN W 3D RECON, May 15, 2016, 4:58. INDICATIONS : Patient with a history of aneurysm, subarachnoid hemorrhage. MEDICAL HISTORY : None. SURGICAL HISTORY : None. ENCOUNTER: Initial ACUITY: 4-6 days PAIN SCORE: 1/10 LOCATION: Headache FLUORO TIME: 7.1 minutes ACCESS SITE: Right femoral artery SEDATION TIME: 30 minutes CONTRAST: 100 cc Visipaque (iodixanol) MEDICATION(S): 1.) 6 mg midazolam (Versed) IV 2.) 300 mcg fentanyl (Sublimaze) IV DEVICE(S): 1.) Right common femoral artery Syvek patch PROCEDURE : 1. Ultrasound-guided puncture of the access site. 2. Conscious sedation with continuous EKG and Oximetry monitoring. 3. Angiography of the right internal carotid 4. Angiography of the left internal carotid 5. Angiography of the right vertebral 6. Angiography of the left vertebral The risks, benefits and alternatives to the procedure were explained and verbal and written consent w as obtained. The site was prepped in sterile fashion. Full sterile technique was used, including ca p, mask, sterile gloves and gown and a large sterile sheet. Hand hygiene and 2% chlorhexidine and/or betadine/alcohol prep was utilized per protocol for cutaneous antisepsis. The skin and subcutaneous tissues were infiltrated with local anesthetic solution. With ultrasound and fluoroscopic guidance the selected artery was punctured and a vascular sheath was placed RIGHT CAROTID: Normal bifurcation of the right carotid system. The internal is patent throughout. 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 The right MCA territory is widely patent. LEFT CAROTID: Normal configuration of the carotid bifurcation. The internal is patent throughout . There is an azygos configuration of the anterior cerebral arteries with both vessels being supplie d from the left via the widely patent A1 segment and a prominent anterior communicating artery. As n oted previously, there is a small, blister-type aneurysm off the ACOM measuring 1.5 x 1.2 mm. This is stable. Otherwise, normal arborization of the right middle cerebral artery with no additional ane urysmal disease. RIGHT VERTEBRAL ARTERY: The right vertebral artery is patent throughout. The vertebrals are codomin ant. Posterior cerebral arteries are patent without aneurysmal disease. LEFT VERTEBRAL ARTERY: The left vertebral is patent throughout. Again, the vertebrals are codomina nt. There is no aneurysmal disease. The puncture site was closed with manual pressure and hemostasis was obtained. The patient tolerated the procedure well and there were no complications. Conscious sedation was performed with the prescribed dosages and duration as above. EKG and oximetry remained stable throughout the procedure. CONCLUSION: 1. Very stable appearance of the intracranial circulation with an azygos configuration of the anterio r cerebral arteries fed solely by the widely patent left A1 segment. 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 2. The anterior communicating artery is widely patent and there is a small, 1.5 x 1.2 mm blister-type aneurysm off the anterior communicating artery. This is unchanged. 3. Both vertebral arteries are widely patent and codominant. The basilar system in both posterior cerebral arteries are patent with out aneurysmal disease. 4. No change from prior. Manuel Luis MD on May 20, 2016 at 16:05 Board Certified Radiologist. This report was verified electronically. ADDENDUM: Please note, the right carotid right common A. catheter was in the proximal right internal carotid ar isi. For the left carotid right common the catheter was in the proximal left internal carotid artery . For the right vertebral line, the catheter was in the proximal right vertebral artery. For the left vertebral run, the catheter was in the proximal left vertebral artery Manuel Luis MD on May 22, 2016 at 18:46 Board Certified Radiologist. This report was verified electronically.
[2016-05-21] VITALS (7 sets, daily range): BP systolic 97–110; BP diastolic 53–72; PULSE 46–69; RESP 16–18; TEMP 97.9–98.2; O2SAT 23–100
[2016-05-21] MEDS: SODIUM CHLOR 0.9% 1000 ML INJ 1,000 ML IV SCH ×2 (01:11→07:42)
[2016-05-21] MEDS: CHLORHEXIDINE GLUCONATE 2 % 1 PACK (2 CLOTHS) TOP SCH (03:15)
[2016-05-21] MEDS: niMODipine 30 MG CAP PO SCH ×3 (03:15→12:00)
[2016-05-21] MEDS: PANTOPRAZOLE SODIUM 40 MG VIAL IV SCH (07:40)
[2016-05-21] MEDS: REMOVE OLD NICODERM (NICOTINE) PATCH TD SCH (07:41)
[2016-05-21] MEDS: PRAVASTATIN SOD 40 MG TAB PO SCH (07:41)
[2016-05-21] MEDS: NICOTINE 21 MG/24 HR PATCH TD SCH (07:41)
[2016-05-21] MEDS: SODIUM CHLORIDE 0.9% FLUSH 5 ML FLUSH IV FLUSH SCH (07:41)
--- NOTE | 2016-05-21 10:28 | HHI.NSPN ---
(Aminata Zamorano) Note Status Status: Progress Note (Aminata Zamorano) Interval History Interval History 20 y/o man developed a severe headache several hours prior to presenting to [facility] ED. Not hypertensive. No focal neurological deficit. CT head demonstrates probable subarachnoid hemorrhage. [place] [facility] [place] possible SAH in fissure between frontal lobes. No intraparenchymal lesions or blood. He remains nonfocal, headache persists without much improvement after morphine 2 mg. 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 05/20: had a spell yesterday when he was standing did not feel well. There was no complaints of headaches, vomiting, seizures, focal weakness, AMS. f/u CT Head yesterday stable. Today, he feels better, no further similar episodes. 05/21: no focal complaints, no headaches. repeat angiogram shows stable 2 mm Acom aneurysm. (Aminata Zamorano) Labs, Micro, & Vital Signs Results Date Time Temp Pulse Resp B/P Pulse Ox O2 Delivery O2 Flow Rate FiO2 05/21/16 08:00 98.0 60 17 110/71 100 05/21/16 08:00 60 05/21/16 06:00 69 05/21/16 04:00 97.9 53 16 97/53 23 05/21/16 04:00 56 05/21/16 02:00 46 05/21/16 00:00 63 05/21/16 00:00 98.1 63 16 109/72 99 05/20/16 22:00 97 Room Air 05/20/16 20:00 97.7 64 24 109/73 99 05/20/16 18:00 48 05/20/16 16:00 68 05/20/16 16:00 97.0 68 16 113/69 100 05/20/16 12:00 62 05/20/16 12:00 97.7 62 21 104/74 100 05/21/16 07:00 Intake Total 1611 ml Output Total 3750 ml Balance -2139 ml Constitutional Vital Signs Date Time Temp Pulse Resp B/P Pulse Ox O2 Delivery O2 Flow Rate FiO2 05/21/16 08:00 98.0 60 17 110/71 100 05/21/16 08:00 60 05/21/16 06:00 69 05/21/16 04:00 97.9 53 16 97/53 23 05/21/16 04:00 56 05/21/16 02:00 46 05/21/16 00:00 63 05/21/16 00:00 98.1 63 16 109/72 99 05/20/16 22:00 97 Room Air 05/20/16 20:00 97.7 64 24 109/73 99 05/20/16 18:00 48 05/20/16 16:00 68 05/20/16 16:00 97.0 68 16 113/69 100 05/20/16 12:00 62 05/20/16 12:00 97.7 62 21 104/74 100 05/21/16 07:00 Intake Total 1611 ml Output Total 3750 ml Balance -2139 ml (Aminata Zamorano) Review of Systems/Exam Exam Mr. Jones is alert and oriented to time, place and person. Speech is fluent with a Bengali speaking type accent. Cranial nerve examination demonstrates the pupils to be equal, round, and reactive to light. Extra-ocular movements are intact. Facial motor are normal and symmetrical. Neck is soft and supple. 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 In the lower extremities, strength is 5/5 in both iliopsoas, quadriceps, hamstrings, plantar flexion, dorsiflexion, and extensor hallicus longus. There is a bilateral plantar flexion response. Cerebellar examination is intact to [id number] test (Aminata Zamorano) Medications Current Medications Current Medications Medications (Trade) Dose Ordered Sig/María Route PRN Reason Start Time Stop Time Status Last Admin Dose Admin Nimodipine 60 mg 60 mg Q4HR PO 05/15/16 08:00 05/21/16 07:40 Sodium Chloride (NS 1000 ml Inj) 1,000 ml @ 100 mls/hr Q10H IV 05/15/16 05:11 05/21/16 07:42 IV Flush (NS Flush) 2 ml UNSCH PRN IV FLUSH FLUSH AFTER USING IV ACCESS 05/15/16 05:15 IV Flush (NS Flush) 2 ml BID IV FLUSH 05/15/16 09:00 05/21/16 07:41 Acetaminophen (Tylenol) 650 mg Q6H PRN PO PAIN 1-10 AND/OR FEVER >101F 05/15/16 05:15 05/20/16 05:58 Morphine Sulfate (Morphine Inj) 2 mg Q2H PRN IV PAIN SCALE 6 TO 10 05/15/16 05:15 Pantoprazole Sodium (Protonix Inj) 40 mg DAILY IV 05/15/16 09:00 05/21/16 07:40 Ondansetron HCl (Zofran Inj) 4 mg Q6H PRN IV NAUSEA OR VOMITING 05/15/16 05:15 05/20/16 19:02 Miscellaneous Information 1 Q361D XX 05/15/16 05:15 05/15/16 05:15 Chlorhexidine Gluconate (Chlorhexidine 2% Cloth) Taper DAILY@04 TOP 05/16/16 04:00 05/12/17 03:59 05/17/16 03:43 Chlorhexidine Gluconate (Chlorhexidine 2% Cloth) 3 pack UNSCH PRN TOP HYGIENIC CARE 05/15/16 05:15 Pravastatin Sodium (Pravachol) 40 mg DAILY PO 05/15/16 09:00 05/21/16 07:41 Nicotine (Habitrol 21 Mg Patch.24 Hr) 1 patch DAILY TD 05/16/16 12:00 05/21/16 07:41 Miscellaneous Information 1 DAILY TD 05/17/16 09:00 05/21/16 07:41 (Aminata Zamorano) Medical Decision Making MDM Remarks 20 y/o male with subarachnoid hemorrhage in L MCA distribution, angiogram showed a 2 mm LEON aneurysm nonfocal neurological examination repeat CT Head 05/20 shows no intracranial bleed, stable repeat angiogram 05/20/16 (Aminata Zamorano) Plan Plan Remarks repeat angiogram report reviewed by kyrie Esparza to [facility], dw pt regarding activity restrictions (Aminata Zamorano) Attending Statement The exam, history, and the medical decision-making described in the above note were completed with the assistance of the mid-level provider. I reviewed and agree with the findings presented. I attest that I had a [id number] encounter with the patient on the same day, and personally performed and documented my assessment and findings in the medical record. (Mario Gallagher MD) Aminata Zamorano May 21, 2016 10:28 Mario Gallagher MD May 24, 2016 20:59
--- NOTE | 2016-05-21 10:48 | HHI.DCPOC ---
Discharge Care Plan Goals to Promote Your Health * To prevent worsening of your condition and complications * To maintain your health at the optimal level Directions to Meet Your Goals Take your medications as prescribed Follow your dietary instruction Follow activity as directed Keep your appointments as scheduled Take your immunizations and boosters as scheduled If your symptoms worsen call your PCP, if no PCP go to Urgent Care Center or Emergency Room Smoking is Dangerous to Your Health. Avoid second hand smoke Call the 24-hour hour crisis hotline for domestic abuse at Charisma Head MD May 21, 2016 10:48
--- NOTE | 2016-05-21 10:53 | HHI.DS ---
Discharge Summary Admission Date May 15, 2016 at 04:45 Discharge Date: May 21, 2016 Admitting Diagnosis Subarrachnoid hemorrhage (1) Subarachnoid hemorrhage ICD Code: I60.9 Diagnosis: Principal (2) Headache ICD Code: R51 Diagnosis: Principal Procedures fem pressure monitoring IR Brief History - From Admission 20 y/o man developed a severe headache several hours prior to presenting to [facility] ED. Not hypertensive. No focal neurological deficit. CT head demonstrates probable subarachnoid hemorrhage. Repeat CT head here [place] [facility] [place] shows possible SAH in fissure between frontal lobes. No intraparenchymal lesions or blood. He remains nonfocal, headache persists without much improvement after morphine 2 mg. Patient going strait to CTA brain now. CBC/BMP: 05/19/16 0416 05/19/16 0419 Imaging Last Impressions Head CT 05/20/16 0000 Signed Impressions: Service Date/Time: Friday, May 20, 2016 04:16 - CONCLUSION: Normal examination. Javi Jdae MD Head CTA 05/15/16 0000 Signed Impressions: Service Date/Time: Sunday, May 15, 2016 04:58 - CONCLUSION: 1. 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 No spasm is identified. 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 Otherwise normal intracranial circulation. No other evidence of aneurysm, AVM, luminal irregularity or vascular displacement. Gustavo Johnson MD PE at Discharge GENERAL: Young 20 yo male appears in nad. SKIN: Warm and dry. HEAD: Atraumatic. Normocephalic. EYES: Pupils equal and round. No scleral icterus. No injection or drainage. ENT: No nasal bleeding or discharge. Mucous membranes pink and moist. NECK: Trachea midline. No JVD. CARDIOVASCULAR: Regular rate and rhythm. RESPIRATORY: No accessory muscle use. Clear to auscultation. Breath sounds equal bilaterally. GASTROINTESTINAL: Abdomen soft, non-tender, nondistended. Hepatic and splenic margins not palpable. MUSCULOSKELETAL: Extremities without clubbing, cyanosis, or edema. No obvious deformities. NEUROLOGICAL: Awake and alert. No obvious cranial nerve deficits. Motor grossly within normal limits. Five out of 5 muscle strength in the arms and legs. Normal speech. PSYCHIATRIC: Appropriate mood and affect; insight and judgment normal. Pt update on day of discharge Feels good. No headache, no motor or sensory deficit. Wants to go home. Hospital Course 20 y/o man developed a severe headache several hours prior to presenting to [facility] ED. Not hypertensive. No focal neurological deficit. CT head demonstrates probable subarachnoid hemorrhage. Repeat CT head here at [facility] shows possible SAH in fissure between frontal lobes. No intraparenchymal lesions or blood. He remains nonfocal. 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 - Regular diet. - Nimodipine 60 mg q4h. - Pravachol - Vasospasm watch - Avoid hypotension. - NS iv 50 ml/hr. DC IVF, now that taking PO. - Bleed area doesn't correlate with blister aneurysm at bifurcation - standard care is to repeat Angiogram in 7 days - Blister aneurysm found is too small for any intervention DVT/GI prophylaxis - No chemical DVT Px. - SCDs. - Protonix daily. Overall impression: Sudden severe headache with small aneurysm. Stable cleared by neurosurgery . To follow up aa OP with PCP and consultants. Pt Condition on Discharge: Good Discharge Disposition: Discharge Home Discharge Time: <= 30 minutes (Avoid strenuous physical effort, sports ) Discharge Instructions DIET: Follow Instructions for: As Tolerated, No Restrictions Activities you can perform: Regular-No Restrictions Follow up Referrals: Neurosurgery - 3-5 Days with Mario Gallagher MD PCP Follow-up - 2-3 Days with Cielo Reyes MD New Medications: Nicotine Patch (Nicotine Patch) 21 Mg/24 Hr Patch 1 PATCH TD DAILY smoking cessation #30 PATCH Charisma Head MD May 21, 2016 10:53
[2016-05-21] MEDS ORDERED: NICO21DI2 TD (10:54)
[2016-05-21] MEDS ORDERED: NIMO30CA3 PO (10:54)
[2016-05-21] MEDS ORDERED: PRAV40TA PO (10:54)
[2016-05-21 14:09] LABS: HDL CHOLESTEROL 43.1 MG/DL (40.0-60.0)
== END 2016-05-21 12:53 | disposition home or self-care (01) | DRG 66 ==
LOC: NEPC 04:00 → NEDA 04:45 → N03B 06:10
PROVIDERS: ADMIT Hospitalist; ATTEND Hospitalist
DX: I60.9 Nontraumatic subarachnoid hemorrhage, unspecified (principal); I67.1 Cerebral aneurysm, nonruptured; F17.210 Nicotine dependence, cigarettes, uncomplicated; G44.53 Primary thunderclap headache; Z23 Encounter for immunization
CPT/HCPCS: 36216; 36217; 36218; 36223; 36224; 36226; 70450; 70496; 76376; 76377; 80053; 80061; 80307; 83735; 84100; 85025; 87641; 90686; 99152; 99153; 99285; C1769; C1887; C1894; C9113; J0171; J0461; J2250; J2270; J2405; J3010; J7030; Q2038; Q9967